=== PATIENT | male | born 1990 | race Hispanic/Latino ===

== ENCOUNTER 2016-11-03 17:16 | Emergency (ER) | payer BC ==
[2016-11-03 17:30] VITALS: RESP 18; TEMP 97.8; O2SAT 99
[2016-11-03] MEDS ORDERED: Sodium Chloride 0.9% 500 ML IV STA (17:47)
[2016-11-03 17:56] VITALS: BP 140/90; PULSE 88
[2016-11-03 18:27] LABS: BASO % 0.5 % (0.0-2.0); EOS % 0.2 % (0.0-4.0); HEMATOCRIT 43.3 % (35.0-51.0); LYMPH # 1.8 K/uL (1.0-4.3); LYMPH % 34.3 % (20.0-40.0); MEAN CELL VOLUME 89.6 fl (80.0-94.0); MEAN CORPUSCULAR HEMOGLOBIN 30.1 pg (27.0-31.0); MEAN CORPUSCULAR HGB CONC 33.6 g/dL (33.0-37.0); MEAN PLATELET VOLUME 9.9 fl (7.2-11.7); MONO # 0.4 K/uL (0.0-0.8); MONO % 7.6 % (0.0-10.0); NEUT % 57.4 % (50.0-75.0); NRBC % 0.1 % (0.0-0.0); RED CELL DISTRIBUTION WIDTH 12.4 % (11.5-14.5); WHITE BLOOD COUNT 5.2 K/uL (4.8-10.8)
--- NOTE | 2016-11-03 18:39 | ED PDOC ---
HPI: Chest Pain Chief Complaint (Provider): palpitations, chest tightness History Per: Patient History/Exam Limitations: no limitations Onset/Duration Of Symptoms: Days (1 day) Current Symptoms Are (Timing): Intermittent Episodes Severity: Moderate Quality: Tightness Associated Symptoms: Nausea Alleviating Factors: Rest Additional History Per: Patient - Risk Factors PE Risk Factors: Neg: Extremity Immobilization/Fx, Decreased Mobilty /Activity, Recent Major Surgery, Recent Hospitalization, Active Cancer, Previous DVT, Previous PE TAD Risk Factors: Neg: Hypertension, Marfan's Syndrome, Crescencio-Danlos Syndrome, Aortic Valve Disease, First Degree Relative With TAD, Sudden Onset Of Pain, Migration Of Pain , New Neurologic Symptoms <Rhett Dunlap - Last Filed: 11/03/16 18:30> <Kaci Morris - Last Filed: 11/04/16 14:33> Time Seen by Provider: 11/03/16 17:25 Chief Complaint (Nursing): Palpitations Additional Complaint(s): 26 y/o M hx of ADHD presenting with acute onset intermittent substernal chest tightness x 1 day which started at 8 pm yesterday as he was lying in bed. Associated with lightheadedness, abdominal cramping and diarrhea x 4 episodes after eating some take out food yesterday. States diarrhea x 2 episodes this AM as well, watery NB. Chest tightness not associated with pain, radiation of pain down limbs, n/v/cough, SOB, focal weakness. No recent travel, sick contacts, no drug use, ETOH Meds: provigil PMD: [facility] (Rhett Dunlap) Supervising Attending Note - Supervising Attending Note The Documented history was done by the: Physician Boarder Steam, Attending Physician The documented physical exam was done by the: Physician Boarder Steam, Attending Physician - Attestation: I have personally seen and examined this patient.: Yes I have fully participated in the care of the patient.: Yes I have reviewed all pertinent clinical information: Yes <Kaci Morris - Last Filed: 11/04/16 14:33> Past Medical History - Medical History Other PMH: ADHD - Surgical History Surgical History: No Surg Hx - Family History Family History: Denies: Stroke, ID, CAD, Diabetes, Hypertension - Living Arrangements Living Arrangements: Alone - Social History Current smoker - smoking cessation education provided: No Alcohol: Social Drugs: Denies <LienrhodaRhett F - Last Filed: 11/03/16 18:30> <Kaci Morris - Last Filed: 11/04/16 14:33> Vital Signs: Last Vital Signs Temp 97.8 F 11/03/16 17:27 Pulse 88 11/03/16 17:46 Resp 18 11/03/16 17:27 BP 140/90 11/03/16 17:46 Pulse Ox 99 11/03/16 18:50 - Allergies Allergies/Adverse Reactions: Allergies Allergy/AdvReac Type Severity Reaction Status Date / Time Penicillins Allergy RASH Verified 11/03/16 17:41 sulfamethoxazole Allergy RASH Verified 11/03/16 17:41 [From Bactrim] trimethoprim [From Bactrim] Allergy RASH Verified 11/03/16 17:41 CODY Risk Score for UA/NSTEMI - CODY Risk Score Age > 64: NO 3 or more CAD Risk Factors: NO Known CAD (Stenosis greater than 50%): NO Aspirin use in past 7 days: NO Severe Angina: NO EKG ST changes greater than 0.5mm: NO Positive Cardiac Marker: NO CODY Score: 0 Risk %: 5% <Rhett Dunlap Cade - Last Filed: 11/03/16 18:30> Curb-65 Severity Score - CURB-65 Severity Score Confusion: No Bun >19mg/dl (>7mmol/L): No Respiratory Rate greater than/equal to 30: No Systolic BP <90 or Diastolic BP less than/equal 60mmHg: No Age >64: No Curb-65 Score: 0 Percentage 30-day mortality: 0.6% <Rhett Dunlap - Last Filed: 11/03/16 18:30> Wells Criteria for PE - Wells Criteria for Pulmonary Embolism Clinical Signs and Symptoms of DVT: No P.E is #1 Diagnosis, or Equally Likely: No Heart Rate >100: No Immobilization at least 3 days;Surgery previous 4 weeks: No Previous, objectively diagnosed PE or DVT: No Hemoptysis: No Malignancy w/treatment within 6 months, or palliative: No Total Score: 0 <Rhett Dunlap - Last Filed: 11/03/16 18:30> Review of Systems ROS Statement: Except As Marked, All Systems Reviewed And Found Negative Constitutional: Negative for: Fever, Sweats, Weakness, Malaise, Weight loss Cardiovascular: Positive for: Palpitations, Light Headedness. Negative for: Chest Pain, Orthopnea, Paroxysmal Noc. Dyspnea, Edema Respiratory: Negative for: Cough, Shortness of Breath, SOB with Exertion, Sputum Gastrointestinal: Positive for: Nausea, Abdominal Pain, Diarrhea. Negative for : Vomiting, Hematochezia, Hematemesis Musculoskeletal: Negative for: Neck Pain, Shoulder Pain, Arm Pain Skin: Negative for: Rash Neurological: Negative for: Weakness, Numbness, Change in Speech, Confusion, Seizures, Altered Mental Status, Headache Psych: Negative for: Anxiety, Depression <Rhett Dunlap - Last Filed: 11/03/16 18:30> Physical Exam - Reviewed Vital Signs Reviewed: Yes - Physical Exam Appears: Positive for: Well, Non-toxic, No Acute Distress Head Exam: Positive for: ATRAUMATIC Skin: Positive for: Warm, Dry Eye Exam: Positive for: EOMI, PERRL ENT: Negative for: Nasal Congestion, Pharyngeal Erythema, Tonsillar Exudate Neck: Positive for: Normal, Painless ROM Cardiovascular/Chest: Positive for: Regular Rate, Rhythm Respiratory: Positive for: Normal Breath Sounds Gastrointestinal/Abdominal: Positive for: Soft. Negative for: Tenderness, Distended, Guarding Back: Negative for: L CVA Tenderness, R CVA Tenderness Extremity: Negative for: Tenderness, Pedal Edema Neurologic/Psych: Positive for: Alert, Oriented <Rhett Dunlap - Last Filed: 11/03/16 18:30> - ECG ECG: Positive for: Interpreted By Me ECG Rhythm: Positive for: Normal QRS, Sinus Rhythm O2 Sat by Pulse Oximetry: 99 - Progress Condition: Re-examined <Rhett Dunlap - Last Filed: 11/03/16 18:30> - Laboratory Results Result Diagrams: 11/03/16 18:24 11/03/16 18:00 <Kaci Morris - Last Filed: 11/04/16 14:33> - Progress ED Course And Treament: Chest Tightness/palpitations - troponins - EKG - NSR - CBC, CMP, TSH Gastroenteritis IVF Zofran Reassessed: patient refusing zofran, states feeling alot better, desiring to sign out AMA because he has dinner plans with his girlfriend AMA form signed today, witnessed by TREVON Schultz ER precautions discussed today (Rhett Dunlap) Disposition - Disposition Disposition: Against Medical Advice Disposition Time: 18:50 <Rhett Dunlap - Last Filed: 11/03/16 18:30> <Kaci Morris - Last Filed: 11/04/16 14:33> - Clinical Impression Clinical Impression: Palpitations - Disposition Condition: UNKNOWN Additional Instructions: RETURN TO ER IMMEDIATELY TO COMPLETE WORKUP Instructions: Against Medical Advice (ED)
[2016-11-03 18:42] LABS: ALB/GLOB RATIO 1.3 (1.0-2.1); ALKALINE PHOSPHATASE 95 U/L (38-126); ALT/SGPT 51 U/L (21-72); AST/SGOT 48 U/L (17-59); BILIRUBIN,TOTAL 1.1 mg/dl (0.2-1.3); BLOOD UREA NITROGEN 11 mg/dl (9-20); CALCIUM 9.8 mg/dL (8.4-10.2); CARBON DIOXIDE 26 mmol/L (22-30); CHLORIDE 100 mmol/L (98-107); GFR AFRICAN-AMERICAN > 60; GLUCOSE,RANDOM 116 mg/dL (75-110); LIPASE 98 U/L (23-300); MAGNESIUM 1.8 MG/DL (1.6-2.3); PHOSPHOROUS 2.7 mg/dl (2.5-4.5); POTASSIUM 3.6 MMOL/L (3.6-5.0); SODIUM 142 mmol/l (132-148); TOTAL PROTEIN 8.5 G/DL (6.3-8.2)
[2016-11-03 19:09] LABS: THYROID STIMULATING HORMONE 1.84 mIU/ML (0.46-4.68)
--- NOTE | 2016-11-04 08:43 | CARD ---
APPROVED REPORT EKG Measurement Heart [id number] <Conclusion> Normal sinus rhythm with sinus arrhythmia Normal ECG
== END 2016-11-03 18:34 | disposition left against medical advice (07) ==
LOC: H.ER 17:16
DX: R00.2 Palpitations (principal)
CPT/HCPCS: 80053; 83690; 83735; 84100; 84443; 84484; 85025; 93005; 96374; 99283; J7040